=== PATIENT | female | born 1965 | race Caucasian/White ===

== ENCOUNTER 2017-06-17 19:27 | Emergency (ER) | payer SELFPAY ==
--- NOTE | 2017-06-17 19:40 | PDOC ---
Rapid Medical Evaluation Chief Complaint: Headache Time Seen by Provider: 06/17/17 19:34 Medical Evaluation: 06/17/17 19:34 I have performed a brief in-person evaluation of this patient. The patient presents with a chief complaint of: Severe Headache that began this morning. Pertinent physical exam findings: n/a I have ordered the following: cbc, cmp, Head CT, UA, Pt/Inr The patient will proceed to the ED for further evaluation. 06/17/17 19:40
[2017-06-17 19:49] VITALS: BP 144/87; PULSE 90; TEMP 98.7; BMI 31.0
--- NOTE | 2017-06-17 19:49 | PDOC ---
History of Present Illness - History of Present Illness Initial Comments: 06/17/17 20:19 The patient is a 52 year old female, with a significant past medical history of TIA and hypothyroidism, who presents to the emergency department with severe onset of headache and right arm numbness today. She denies recent fevers, chills, dizziness. She denies recent nausea, vomit, diarrhea or constipation. She denies recent dysuria, frequency, urgency or hematuria. She denies recent chest pain or shortness of breath. Allergies: NKDA Past surgical history: None reported. <Tiffanie Ruvalcaba - Last Filed: 06/17/17 20:19> <Shena Daley - Last Filed: 06/18/17 01:33> - General Chief Complaint: CVA/TIA Stated Complaint: NUMBNESS/HEADACHE Time Seen by Provider: 06/17/17 19:49 Past History <Tiffanie Ruvalcaba - Last Filed: 06/17/17 20:19> - Past Medical History COPD: No Seizures: Yes - Suicide/Smoking/Psychosocial Hx Smoking History: Never smoked Have you smoked in the past 12 months: No Information on smoking cessation initiated: No Hx Alcohol Use: No Drug/Substance Use Hx: No Substance Use Type: None <Shena Daley - Last Filed: 06/18/17 01:33> - Past Medical History Allergies/Adverse Reactions: Allergies Allergy/AdvReac Type Severity Reaction Status Date / Time No Known Allergies Allergy Verified 06/17/17 20:36 Review of Systems - Review of Systems Comments:: 06/17/17 20:21 CONSTITUTIONAL: Absent: fever, chills, diaphoresis, generalized weakness, malaise, loss of appetite HEENT: Absent: rhinorrhea, nasal congestion, throat pain, throat swelling, difficulty swallowing, mouth swelling, ear pain, eye pain, visual Changes CARDIOVASCULAR: Absent: chest pain, syncope, palpitations, irregular heart rate, lightheadedness , peripheral edema RESPIRATORY: Absent: cough, shortness of breath, dyspnea with exertion, orthopnea, wheezing, stridor, hemoptysis GASTROINTESTINAL: Absent: abdominal pain, abdominal distension, nausea, vomiting, diarrhea, constipation, melena, hematochezia GENITOURINARY: Absent: dysuria, frequency, urgency, hesitancy, hematuria, flank pain, genital pain MUSCULOSKELETAL: Absent: myalgia, arthralgia, joint swelling SKIN: Absent: rash, itching, pallor HEMATOLOGIC/IMMUNOLOGIC: Absent: easy bleeding, easy bruising, lymphadenopathy, frequent infections ENDOCRINE: Absent: unexplained weight gain, unexplained weight loss, heat intolerance, cold intolerance NEUROLOGIC: Present: headache, right arm numbness Absent: focal weakness or paresthesias, dizziness, unsteady gait, seizure, mental status changes, bladder or bowel incontinence PSYCHIATRIC: Absent: anxiety, depression, suicidal or homicidal ideation, hallucinations. <Tiffanie Ruvalcaba - Last Filed: 06/17/17 20:19> *Physical Exam - Vital Signs Last Vital Signs Temp Pulse Resp BP Pulse Ox 98.7 F 90 20 144/87 98 06/17/17 19:34 06/17/17 19:34 06/17/17 19:34 06/17/17 19:34 06/17/17 19:34 - Physical Exam Comments: 06/17/17 20:22 GENERAL: Well developed, well nourished. Awake and alert. No acute distress. HEENT: Normocephalic, atraumatic. PERRLA, EOMI. No conjunctival pallor. Sclera are non- icteric. Moist mucous membranes. Oropharynx is clear. NECK: Supple. Full ROM. No JVD. Carotid pulses 2+ and symmetric, without bruits. No thyromegaly. No lymphadenopathy. CARDIOVASCULAR: Regular rate and rhythm. No murmurs, rubs, or gallops. Distal pulses are 2+ and symmetric. PULMONARY: No evidence of respiratory distress. Lungs clear to auscultation bilaterally. No wheezing, rales or rhonchi. ABDOMINAL: Soft. Non-tender. Non-distended. No rebound or guarding. No organomegaly. Normoactive bowel sounds. MUSCULOSKELETAL Normal range of motion at all joints. No bony deformities or tenderness. No CVA tenderness. EXTREMITIES: No cyanosis. No clubbing. No edema. No calf tenderness. SKIN: Warm and dry. Normal capillary refill. No rashes. No jaundice. NEUROLOGICAL: Alert, awake, appropriate. Cranial nerves 2-12 intact. No deficits to light touch and temperature in face, upper extremities and lower extremities. No motor deficits in the in face, upper extremities and lower extremities. Normoreflexic in the upper and lower extremities. Normal speech. Toes are down-going bilaterally. Gait is normal without ataxia. PSYCHIATRIC: Cooperative. Good eye contact. Appropriate mood and affect. <Tiffanie Ruvalcaba - Last Filed: 06/17/17 20:19> - Vital Signs Last Vital Signs Temp Pulse Resp BP Pulse Ox 98.7 F 90 20 144/87 98 06/17/17 19:34 06/17/17 19:34 06/17/17 19:34 06/17/17 19:34 06/17/17 19:34 <Shena Daley - Last Filed: 06/18/17 01:33> NIH Stroke Scale - Last Known Well Date/Time & Onset Date Last Known Well: 06/17/17 Time Last Known Well: 18:00 - Initial Evaluation Level of consciousness: Alert Ask patient the month and their age: Answers both correctly Visual field testing: No visual field loss Facial paresis (Show teeth/raise eyebrows/close eyes tight): Normal symmetrical movement Motor Function: Left Arm: Normal Motor Function: Right Arm: Normal (extends arm 90 (or 45) degrees for 10 seconds without drift Motor Function: Left Leg: Normal (extends leg 30 degrees for 5 seconds without drift) Motor Function: Right Leg: Normal (extends leg 30 degrees for 5 seconds without drift) Limb Ataxia: No ataxia Sensory(Use pinprick test arms,legs,trunk,face/side to side): Normal Best language (Describe picture, name items, read sentences): No Aphasia Dysarthria (read several words): Normal articulation Extinction and Inattention: No abnormality <Shena Daley - Last Filed: 06/18/17 01:33> tPA Exclusion Checklist 0-3hr - Time Elapsed Date last known well: 06/17/17 Time last known well: 18:00 Elaspsed time: Day(s) and 7 Hour(s) and 32 Minutes - Thrombolytic Therapy Candidate Is the patient eligible for Thrombolytic Therapy?: No - Exclusion Criteria 0-3hr SBP greater than 185 or DBP greater than 110mmHg despite tx: No Recent IC/spinal surgery,head trauma or stroke w/in last 3mo: No Hx of previous IC hemorrhage, IC neoplasm, AVM or aneurysm: No Active internal bleeding: No Blding diathesis(low plt ct, inc PTT,INR>1.7 or use of NOAC): No Symptoms suggest subarachnoid hemorrhage: No CT demonstrates multilobar infarct(>1/3 cerebral hemiphere): No Arterial puncture at noncompressible site in previous 7 days: No Blood glucose concentration less than 50mg/dL (2.7mmol/L): No - Relative Exclusion Criteria 0-3h : No - Ineligibility reason(s) Reasons No tPA given: See reason(s) noted above (pt had NIHSS of zero,her left arm numbness quickly resolved) <Shena Daley - Last Filed: 06/18/17 01:33> Critical Care Time/MDM Note - Medical Decision Making Note: 06/18/17 01:20 52-year-old female brought in with severe onset of headache and left arm numbness. On exam she did not have any focal neuro deficits CAT scan did not show any acute intracranial pathology. NIH stroke scale is 0 The numbness the patient reported was from her fingertips to her elbow. There was no objective loss of sensation or weakness in the arm. Labs were reviewed. Patient had a slightly bumped glucose. Later in the evening The family asked what she could do about her migraines. Initially she did not mention she had migraines, but it became clear that she does have frequent headaches. It was recommended that she follow up with her primary doctor and I'll refer her to a neurologist 06/18/17 01:32 <Shena Daley - Last Filed: 06/18/17 01:33> Discharge Disposition <Tiffanie Ruvalcaba - Last Filed: 06/17/17 20:19> <Shena Daley - Last Filed: 06/18/17 01:33> - Diagnosis Migraine Qualifiers: Migraine type: unspecified Status migrainosus presence: without status migrainosus Intractability: not intractable Qualified Code(s): G43.909 - Migraine, unspecified, not intractable, without status migrainosus - Discharge Dispostion Disposition: HOME Condition at time of disposition: Stable - Referrals Referrals: Miguel Monteiro DO [Staff Physician] - Rebel Valencia MD [Staff Physician] - - Patient Instructions Printed Discharge Instructions: DI for Migraine Additional Instructions: please follow up with the neurologist
[2017-06-17] MEDS ORDERED: SODIUM CHLORIDE 1,000 ML IV SCH (20:00)
[2017-06-17] MEDS ORDERED: ACETAMINOPHEN 500 MG TABLET (FP) PO ONE (20:44)
[2017-06-17] MEDS ORDERED: ACETAMINOPHEN 325 MG TABLET (FP) ONE (21:00)
[2017-06-17 21:20] LABS: BASOPHIL 0.4 % (0-2.0); EOSINOPHIL 1.6 % (0-4.5); MCH 28.4 pg (25.7-33.7); MCHC 33.1 g/dl (32.0-36.0); MEAN PLT VOLUME 8.9 fl (7.5-11.1); NEUTROPHILS 61.5 % (42.8-82.8); PLATELET COUNT 243 K/MM3 (134-434); RDW 14.3 % (11.6-15.6); WHITE BLOOD COUNT 10.3 K/mm3 (4.0-10.0)
[2017-06-17 21:44] LABS: INR 1.07 (0.82-1.09); PROTHROMBIN TIME (PATIENT) 12.1 SEC (9.98-11.88)
[2017-06-17 21:50] LABS: ALBUMIN 3.9 g/dl (3.4-5.0); ANION GAP 10 (8-16); BILIRUBIN,TOTAL 0.5 mg/dL (0.2-1.0); CALCIUM 8.6 mg/dL (8.5-10.1); CO2 23 mmol/L (21-32); CREATININE 0.8 mg/dL (0.55-1.02); GLUCOSE,RANDOM 114 mg/dL (74-106); SGOT/AST 41 U/L (15-37); SGPT/ALT 78 U/L (12-78); TOT PROT 7.9 g/dl (6.4-8.2)
[2017-06-17 21:51] LABS: ALK PHOS 139 U/L (45-117)
[2017-06-17 22:25] LABS: CHOLESTEROL 165 mg/dL (50-200)
[2017-06-17 22:33] LABS: CPK 92 IU/L (26-192)
[2017-06-17 22:53] LABS: TROPONIN I < 0.02 ng/ml (0.00-0.05)
[2017-06-18 00:13] LABS: URINE APPEARANCE CLEAR; URINE BILIRUBIN NEGATIVE (NEGATIVE); URINE BLOOD NEGATIVE (NEGATIVE); URINE COLOR LT. YELLOW; URINE GLUCOSE (UA) NEGATIVE (NEGATIVE); URINE KETONE 3+ (NEGATIVE); URINE NITRITE NEGATIVE (NEGATIVE); URINE PROTEIN NEGATIVE (NEGATIVE); URINE UROBILINOGEN 0.2 mg/dL (0.2-1.0)
[2017-06-18 09:35] LABS: URINE LEUK ESTERASE 3+ (NEGATIVE)
[2017-06-18 11:33] LABS: URINE BACTERIA MANY /hpf (NEGATIVE); URINE RBC 0-3 /hpf (0-3); URINE WBC 15-20 (0-5)
--- NOTE | 2017-06-18 11:58 | EKG ---
Test Reason : Blood Pressure : / mmHG Vent. Rate : 069 BPM Atrial Rate : 069 BPM P-R Int : 144 ms QRS Dur : 100 ms QT Int : 438 ms P-R-T Axes : 037 -19 018 degrees QTc Int : 469 ms NORMAL SINUS RHYTHM INCOMPLETE RIGHT BUNDLE BRANCH BLOCK MINIMAL VOLTAGE CRITERIA FOR LVH, MAY BE NORMAL VARIANT BORDERLINE ECG NO PREVIOUS ECGS AVAILABLE Confirmed by RONI HATHAWAY, MATTY ([id number]) on 06/18/2017 11:58:44 AM Referred By: Confirmed By:MATTY TAMAYO MD
== END 2017-06-18 01:58 | disposition home or self-care (01) ==
LOC: JER 19:27
PROC: 3E0337Z Introduction of Electrolytic and Water Balance Substance into Peripheral Vein, Percutaneous Approach (ICD-10-PCS; principal; 2017-06-17)
DX: G43.909 Migraine, unspecified, not intractable, without status migrainosus (principal)
CPT/HCPCS: 36415; 70450-TC; 80053; 81003; 81015; 82465; 82550; 83718; 83721; 84478; 84484; 85025; 85610; 85730; 93005; 93010; 99282-25